=== PATIENT | female | born 1965 | race African-American/Black ===

== ENCOUNTER 2022-03-18 04:13 | Day surgery (SDC) | payer BC, OTHER ==
[2022-03-17 10:40] VITALS: BMI 33.3
[2022-03-18] MEDS ORDERED: ONDANSETRON 4 MG/2 ML VIAL ONE (07:18)
[2022-03-18] MEDS ORDERED: DEXAMETHASONE SOD PHOSPHATE 4 MG/1 ML VIAL ONE (07:18)
[2022-03-18] MEDS ORDERED: LIDOCAINE HCL/PF 2% SDV 5ML VIAL ONE (07:18)
[2022-03-18] MEDS ORDERED: PROPOFOL 20 ML ONE (07:19)
[2022-03-18] MEDS ORDERED: MIDAZOLAM HCL 2 MG/2 ML SINGLE DOSE VIAL ONE (07:19)
[2022-03-18] MEDS ORDERED: IBUPROFEN 600 MG TABLET (FP) PO PRN (07:41)
[2022-03-18] MEDS ORDERED: IBUPROFEN 800 MG/8 ML IJ IVPB PRN (07:41)
[2022-03-18] MEDS ORDERED: oxyCODONE HCL 5 MG TABLET PO PRN ×2 (07:41→08:42)
[2022-03-18] MEDS ORDERED: ONDANSETRON 4 MG/2 ML VIAL IVPUSH PRN ×2 (07:41→08:42)
[2022-03-18] MEDS ORDERED: ELECTROLYTE-148 SOLN 1,000 ML IV SCH (07:45)
[2022-03-18] MEDS ORDERED: LACTATED RINGERS SOLUTION 1,000 ML IV SCH (08:45)
[2022-03-18 10:02] VITALS: RESP 16
[2022-03-18 11:21] VITALS: BP 106/60; PULSE 71; TEMP 97.1
== END 2022-03-18 11:21 | disposition home or self-care (01) ==
LOC: JASU-SURG 04:13
PROVIDERS: ATTEND Obstetrics & Gynecology
PROC: 0UN98ZZ Release Uterus, Via Natural or Artificial Opening Endoscopic (ICD-10-PCS; 2022-03-18)
PROC: 0UDB8ZX Extraction of Endometrium, Via Natural or Artificial Opening Endoscopic, Diagnostic (ICD-10-PCS; principal; 2022-03-18 08:01)
DX: N92.4 Excessive bleeding in the premenopausal period (principal); N85.6 Intrauterine synechiae
CPT/HCPCS: 81025; 86900; 86922; 88305-TC; 94760